=== PATIENT | male | born 1950 | race Caucasian/White ===

== ENCOUNTER 2024-02-12 09:05 | Emergency (ER) | payer MEDICARE, OTHER, SELFPAY ==
[2024-02-12 09:34] VITALS: BP 163/99
[2024-02-12 11:00] LABS: Urine Albumin Negative (Neg - Trace); Urine Bilirubin Negative (Negative); Urine Character Clear (Clear); Urine Color Yellow; Urine Glucose Negative (Negative); Urine Ketone Negative (Negative); Urine Leukocyte Negative (Negative); Urine Nitrite Negative (Negative); Urine Occult Blood Negative (Negative); Urine Urobilinogen Negative (Neg - 1+)
--- NOTE | 2024-02-12 11:00 | ED.GENMED ---
History of Present Illness
General
Chief Complaint: Male Genito-Urinary Symptoms
Source: patient and spouse
Exam Limitations: none
Time Seen by Provider: 02/12/24 10:16
Nursing documentation reviewed up to this point in time: agreed with
History of Present Illness
History of Present Illness:
73-year-old male with past medical history of hypertension, hyperlipidemia, COPD who presents with his for evaluation of testicular pain. Patient reports onset of symptoms 4 days ago�no trauma. Reports symptoms have been constant and
generally improved but not resolved since that time and given the duration of symptoms he decided to come into to be evaluated today. He reports aching pain in the left testicle. He reports some slight associated swelling of the scrotum on the
left. He has not noticed any change in color. He has not had any dysuria, hematuria, change in urinary frequency. He has not had any abdominal or flank pain. He did note low-grade fever for roughly 24 hours after onset of symptoms but that has
resolved. He denies any other complaints. In triage he did mention having some recent tick bites�he works as a [employer] and says that he frequently pulls ticks off of himself. He has not noticed any rash. He has been treated for Lyme's disease
in the past.
Review of Systems
Review of Systems
All Other Systems: ROS reviewed and negative except as documented in HPI and ROS
Constitutional: Reports fever and chills
EENT: Denies sore throat or runny nose
Respiratory: Denies cough or trouble breathing
Cardiac: Denies chest pain
ABD/GI: Denies abdominal pain, nausea or vomiting
: Reports other (Testicular pain); Denies dysuria, frequency, flank pain or bleeding
Musculoskeletal: Denies edema
Skin: Denies rash
Neurological: Denies dizzy or headache
Phy Exam
Physical Exam
Physical Exam:
General: Awake, alert, oriented x3; no acute distress
Head: Normocephalic, atraumatic
Eyes: Conjunctiva normal
Throat: Airway intact, handling secretions
Neck: Trachea midline
Lungs: Breathing comfortably no distress
Heart: Regular rate
: Bilateral varicoceles, normal testicular lie, intact hemostatic reflexes; no tenderness or masses right testicle, mild tenderness of the epididymis on the left, no testicular mass, positive Prehn sign; no hernia; normal circumcised penis
Neuro: No gross deficits
Skin: no rash
Extremities: Warm and well-perfused
Scores
Heart Failure Risk
Heart Failure Risk Score: Not Applicable
Heart Score for Chest Pain Patients
STEMI patient?: Not applicable
Withdrawal Assessment of Alcohol
Withdrawal Assessment Completed?: Not applicable
Course
Orders/Labs/Results
Orders:
Orders
02/12/24 10:31
Scrotum US [US Scrotum] Urgent
Comment:
Reason For Exam: left testicular pain
02/12/24 10:47
Urinalysis Reflex To Culture Urgent
Date Specimen was Collected: 02/12/24
Time Specimen was Collected: 10:45
Vital Signs
Initial and Last Documented VS:
Initial Vital Signs
Temp Pulse Resp BP Pulse Ox
36.8 C 83 16 163/99 96
02/12/24 09:34 02/12/24 09:34 02/12/24 09:34 02/12/24 09:34 02/12/24 09:34
Last Documented Vital Signs
Temp Pulse Resp BP Pulse Ox
36.8 C 83 16 163/99 96
02/12/24 09:34 02/12/24 09:34 02/12/24 09:34 02/12/24 09:34 02/12/24 09:34
MDM/Problems Addressed
Differential Diagnosis Includes:
Epididymitis, orchitis, testicular torsion, nephrolithiasis
MDM/Problems Addressed:
73-year-old male presents for evaluation of left testicular pain for the past few days; he did have a transient fever hypertensive but otherwise normal vitals. Exam as above. Will send urinalysis and check scrotal ultrasound. Reassess after the
above. Suspect likely epididymitis. Regarding reported tick bites�he has no rash, checks for ticks regularly. Advised to monitor for rash or symptoms and follow-up with PCP as needed.
UA reviewed and no signs of infection, no hematuria or any clinically significant abnormalities. Scrotal ultrasound shows abnormal area on the left testicle which could be from prior infarction/ischemia/infection, tumor. Case discussed with
urology who recommended repeat ultrasound as an outpatient in 2 to 3 months, they can follow-up with patient in the office. Low suspicion that this represents primary cause of his acute issue but may be the cause of the intermittent testicular pain
he has had for years. Suspect likely his acute symptoms are related to epididymitis and with good flow to both testicles torsion has been ruled out. He is stable for discharge on antibiotics and can follow-up with urology as an outpatient. I
spoke to the patient at length about results and plan as above and he feels comfortable with this. We spoke about return precautions and all questions were answered.
*Pulse Oximetry
Patient hypoxic: no
*Critical Care Note
Total Time (30-74mins, 75-104mins- exclusive of procedures): Not Applicable
Data Reviewed
Source: patient and spouse
Patient Management
Discussion with other providers: Script Reader (Discussed with urology)
ED Attending Note
-
Portions of this chart may have been created with voice recognition software.� Occasional wrong word or��sound alike� substitutions may have occurred due to the inherent limitations of voice recognition software.
Discharge Plan
Departure
Patient with high blood pressure during this ER visit?: Yes
Discharge Problem:
Pain in left testicle
Instructions: Epididymitis and orchitis
Prescriptions:
New
levofloxacin 500 mg tablet
500 mg PO DAILY Qty: 9 0RF
Referrals:
Cynthia De La Cruz MD [Family Provider] - Follow up in 2-3 days
Scooby Levi MD [Active] - Call in 1-3 days for appt (Urology--call for appointment as discussed)
Activity Restrictions/Additional Instructions:
You were seen in the emergency room for testicular pain. We think it is from epididymitis and you are being treated with antibiotics. You had an ultrasound to make sure there was no twisting of your testicle; it showed that there is no twisting of
the testicle but it did show a small area that was abnormal. This could be from a prior infection, prior vascular injury/infarction, or potentially from a small tumor. We spoke with the urologist and they recommended that he follow-up with him in
the office and they will perform repeat imaging of the area as an outpatient. You should call their office first thing Wednesday to schedule follow-up.
Thank you for visiting the Emergency Department at [facility].
1. Please schedule a follow up appointment as directed. Call first thing tomorrow morning to make an appointment.
2. If indicated, please take your medications as instructed and indicated on discharge paperwork.
3. If any of your symptoms do not improve, or persist, or become more severe within 6-12 hours, please return to the emergency department for further care.
4. Please return to the emergency department if you develop a headache, neck pain/stiffness, fever greater than 100.4F, chest pain, shortness of breath, persistent nausea, vomiting, slurred speech, difficulty walking, numbness/tingling, weakness,
signs of infection or any other symptoms that are worrisome to you.
Please call [phone] if you have any questions.
Interventions
Interventions:
ED-Male Genitourinary Assessment Last Done: 02/12/24 10:23
Discharge Date and Time
Print Language: BHUTANESE
[2024-02-12 12:00] VITALS: BP 161/87
[2024-02-12] MEDS: LEVAQUIN 500 MG PO (13:30)
== END 2024-02-12 13:46 | disposition home or self-care (01) ==
LOC: EMR 09:05
PROVIDERS: EMERGENCY PHYSICIAN Emergency Medicine; FAMILY PHYSICIAN Family Medicine
DX: N50.812 Left testicular pain (principal); I86.1 Scrotal varices; R50.9 Fever, unspecified; I10 Essential (primary) hypertension; E78.5 Hyperlipidemia, unspecified; J44.9 Chronic obstructive pulmonary disease, unspecified
CPT/HCPCS: 99284; 76870; 81003; 93976